=== PATIENT | female | born 1980 | race American Indian/Alaskan Native ===

== ENCOUNTER 2017-09-16 19:26 | Emergency (ER) | payer SELFPAY ==
[2017-09-16 19:35] VITALS: BP 134/90
[2017-09-16] MEDS ORDERED: FLEXERIL ONE (20:41)
[2017-09-16] MEDS ORDERED: ULTRAM ONE (20:41)
[2017-09-16] MEDS ORDERED: BOOSTRIX IM ONE (21:24)
[2017-09-16] MEDS ORDERED: KEFLEX PO ONE (21:24)
[2017-09-16] MEDS ORDERED: NORCO 5/325 PO ONE (21:24)
[2017-09-16] MEDS ORDERED: PERCOCET 5/325 PO ONE (21:25)
[2017-09-16] MEDS ORDERED: ZOFRAN ODT PO ONE (21:25)
--- NOTE | 2017-09-16 22:12 | Emergency Department Report ---
- General Chief Complaint: Wound/Laceration Stated Complaint: LSCERATION TO RIGHT HAND Time Seen by Provider: 09/16/17 21:23 Source: patient, EMS Mode of arrival: Ambulatory Limitations: No Limitations - History of Present Illness Initial Comments: 37-year-old female past medical history none presents with complaint of deep laceration to distal right index fingertip. Happened while cooking dinner per pt. no other injuries, unknown tdap status. Fingertip wrapped with gauze on initial inspection -: This evening Extremity Location: Right: Hand (distal right index fingertip) Place: home Patient Tetanus UTD: No Context: accidental Associated Symptoms: pain - Related Data Previous Rx's Medication Instructions Recorded Last Taken Type Cephalexin [Keflex] 500 mg PO BID #20 capsule 09/16/17 Unknown Rx Ibuprofen [Motrin] 600 mg PO Q8H PRN #30 tablet 09/16/17 Unknown Rx RX: Acetaminophen/Codeine [Tylenol 1 tab PO Q6H PRN #12 tab 09/16/17 Unknown Rx /Codeine # 3 tab] Allergies Allergy/AdvReac Type Severity Reaction Status Date / Time iodine Allergy Hives Verified 09/16/17 19:30 shellfish derived Allergy Hives Verified 09/16/17 19:30 ED Review of Systems ROS: Stated complaint: LSCERATION TO RIGHT HAND Other details as noted in HPI Constitutional: denies: chills, fever Eyes: denies: eye pain, eye discharge, vision change ENT: denies: ear pain, throat pain Respiratory: denies: cough, shortness of breath, wheezing Cardiovascular: denies: chest pain, palpitations Endocrine: no symptoms reported Gastrointestinal: denies: abdominal pain, nausea, diarrhea Genitourinary: denies: urgency, dysuria, discharge Musculoskeletal: denies: back pain, joint swelling, arthralgia Skin: denies: rash, lesions Neurological: denies: headache, weakness, paresthesias Psychiatric: denies: anxiety, depression Hematological/Lymphatic: denies: easy bleeding, easy bruising ED Past Medical Hx - Past Medical History Previous Medical History?: No - Social History Smoking Status: Current Some Day Smoker - Medications Home Medications: Home Medications Medication Instructions Recorded Confirmed Last Taken Type Cephalexin [Keflex] 500 mg PO BID #20 capsule 09/16/17 Unknown Rx Ibuprofen [Motrin] 600 mg PO Q8H PRN #30 tablet 09/16/17 Unknown Rx RX: Acetaminophen/Codeine [Tylenol 1 tab PO Q6H PRN #12 tab 09/16/17 Unknown Rx /Codeine # 3 tab] ED Physical Exam - General Limitations: No Limitations General appearance: alert, in no apparent distress - Head Head exam: Present: atraumatic, normocephalic - Eye Eye exam: Present: normal appearance, PERRL, EOMI - ENT ENT exam: Present: mucous membranes moist - Neck Neck exam: Present: normal inspection - Respiratory Respiratory exam: Present: normal lung sounds bilaterally. Absent: respiratory distress - Cardiovascular Cardiovascular Exam: Present: regular rate, normal rhythm. Absent: systolic murmur, diastolic murmur, rubs, gallop - GI/Abdominal GI/Abdominal exam: Present: soft, normal bowel sounds - Extremities Exam Extremities exam: Present: normal inspection - Expanded Upper Extremity Exam Right Shoulder Exam: Present: normal inspection, full ROM Upper Arm exam: Present: normal inspection, full ROM Elbow exam: Present: normal inspection, full ROM Forearm Wrist exam: Present: normal inspection, full ROM Hand Wrist exam: Present: normal inspection, full ROM Hand L/R Front: 1 - Positive: laceration (semicircumferential laceration here around tuft of fingertip going around nailbed.) Neuro motor exam: Present: wrist extension intact, thumb opposition intact, thumb IP flexion intact, thumb adduction intact, fingers 2-5 abduction intact Neurosensory exam: Present: radial nerve intact, ulnar nerve intact, median nerve intact Vascular: Present: normal capillary refill - Back Exam Back exam: Present: normal inspection - Neurological Exam Neurological exam: Present: alert, oriented X3 - Psychiatric Psychiatric exam: Present: normal affect, normal mood - Skin Skin exam: Present: warm, dry, intact, normal color. Absent: rash ED Course Vital Signs 09/16/17 19:32 Temperature 98.8 F Pulse Rate 84 Respiratory 20 Rate Blood Pressure 134/90 O2 Sat by Pulse 99 Oximetry - Laceration /Wound Repair Right Distal Finger Wound Location: upper extremity (distal right index finger) Wound's Depth, Shape: superficial, linear, irregular Irrigated w/ Saline (ccs): 1,000 Anesthesia: 1% Lidocaine Volume Anesthetic (ccs): 5 Wound Debrided: minimal Suture Size/Type: 5:0, 4:0, nylon Number of Sutures: 8 Layer Closure?: No Sterile Dressing Applied?: Yes (triple antibiotic ointment with gauze then fingertip splint) ED Medical Decision Making - Medical Decision Making A/P: Fingertip laceration and fracture 1-wound approximated, good distal capillary refill and distal sensation, range of motion fingers intact 2-discussed with before discharge 3-I emphasized the importance of orthopedic hand specialist follow-up to the patient. I provided her with multiple referrals and advised to follow-up with orthopedics to mitigate any infection and/or permanent disability and/or loss of fingertip. Patient stated she understood the importance of doing so. Patient's partner at bedside for this conversation. 4- short course analgesics, Keflex 10 day course. 48 hour recheck in the ED. Critical care attestation.: If time is entered above; I have spent that time in minutes in the direct care of this critically ill patient, excluding procedure time. ED Disposition Clinical Impression: Finger laceration Qualifiers: Encounter type: initial encounter Finger: index finger Damage to nail status: without damage Foreign body presence: without foreign body Laterality: right Qualified Code(s): S61.210A - Laceration without foreign body of right index finger without damage to nail, initial encounter Finger fracture, right Qualifiers: Encounter type: initial encounter Finger: index finger Fracture type: open Phalanx: distal Fracture alignment: displaced Qualified Code(s): S62.630B - Displaced fracture of distal phalanx of right index finger, initial encounter for open fracture Disposition: DC-01 TO HOME OR SELFCARE Is pt being admited?: No Does the pt Need Aspirin: No Condition: Stable Instructions: Finger Fracture (ED), Finger Amputation (ED), Finger Laceration ( ED) Additional Instructions: [email or web address] 48-72 hours wound check in ED if you cannot f/u with orthopedics in this timeframe Prescriptions: RX: Acetaminophen/Codeine [Tylenol /Codeine # 3 tab] 1 tab PO Q6H PRN #12 tab PRN Reason: Pain Cephalexin [Keflex] 500 mg PO BID #20 capsule Ibuprofen [Motrin] 600 mg PO Q8H PRN #30 tablet PRN Reason: Pain Referrals: PRIMARY CAREMD [Primary Care Provider] - 3-5 Days [facility] [Outside] - 3-5 Days [facility] [Provider Group] - 3-5 Days EMELIA GARCIAS MD [Staff Physician] - 3-5 Days Forms: Accompanied Note, Work/School Release Form(ED) Time of Disposition: 23:51
--- NOTE | 2017-09-16 23:08 | XRay Report ---
FINAL REPORT PROCEDURE: XR FINGER(S) 2+V RT TECHNIQUE: Three views of the right 2nd finger are obtained HISTORY: right fingertip laceration index finger COMPARISON: No prior studies are available for comparison. FINDINGS: There is a laceration through the distal aspect of the 2nd finger. This has a moderately displaced and moderately angulated fracture through the midshaft of the distal phalanx. No dislocation is seen. IMPRESSION: Moderately displaced and angulated fracture of the midshaft of the distal phalanx of the right 2nd finger is seen.
[2017-09-17] MEDS ORDERED: ANCEF IM ONE
[2017-09-17] MEDS ORDERED: TRIPLE ANTIBIOTIC TP ONE ×2 (00:03→00:04)
== END 2017-09-17 00:25 | disposition home or self-care (01) ==
LOC: ED 19:26
DX: S62.630B Displaced fracture of distal phalanx of right index finger, initial encounter for open fracture (principal); F17.200 Nicotine dependence, unspecified, uncomplicated; Z91.013 Allergy to seafood; X58.XXXA Exposure to other specified factors, initial encounter; Y93.G3 Activity, cooking and baking; Y99.8 Other external cause status; Y92.098 Other place in other non-institutional residence as the place of occurrence of the external cause
CPT/HCPCS: 29130; 73140; 90471; 90715; 96372; 99284; J0690; A6250; Q0162

== ENCOUNTER 2017-10-01 05:07 | Emergency (ER) | payer SELFPAY ==
[2017-10-01 05:45] VITALS: BP 114/74
--- NOTE | 2017-10-01 06:48 | Emergency Department Report ---
Suture/Staple Removal - [facility] Chief Complaint: Laceration/Recheck/Suture Stated Complaint: SUTURE REMOVED Time Seen by Provider: 10/01/17 06:42 When Sutures or Anam Placed: 11-14 Days Ago Wound Location: right index finger ED Review of Systems ROS: Stated complaint: SUTURE REMOVED Other details as noted in HPI Constitutional: no symptoms reported, see HPI. denies: chills, diaphoresis, fever, malaise, weakness Respiratory: no symptoms reported, see HPI. denies: cough, orthopnea, shortness of breath, SOB with exertion, SOB at rest, stridor, wheezing Cardiovascular: as per HPI. denies: chest pain, palpitations, dyspnea on exertion, orthopnea, edema, syncope, paroxysmal nocturnal dyspnea Skin: as per HPI, other (sutures to right index laceration). denies: rash, lesions, change in color, change in hair/nails, pruritus Neurological: as per HPI. denies: headache, weakness, numbness, paresthesias, confusion, abnormal gait, vertigo Psychiatric: as per HPI. denies: anxiety, depression, auditory hallucinations, visual hallucinations, homicidal thoughts, suicidal thoughts ED Past Medical Hx - Past Medical History Previous Medical History?: No Hx Psychiatric Treatment: Yes (2005- IP in [facility]) - Surgical History Past Surgical History?: No - Social History Smoking Status: Current Every Day Smoker Substance Use Type: None - Medications Home Medications: Home Medications Medication Instructions Recorded Confirmed Last Taken Type Amoxicillin/K Clav Tab [Augmentin 1 tab PO Q12HR #20 tab 04/29/17 Unknown Rx 875 mg] Carbamide Peroxide 6.5% [Ear Wax 5 drops OT BID #1 bottle 04/29/17 Unknown Rx Drops] Ibuprofen [Motrin 800 MG tab] 800 mg PO Q8HR PRN #30 tablet 04/29/17 Unknown Rx Acetaminophen/Codeine [Tylenol 1 tab PO Q6H PRN #12 tab 09/16/17 Unknown Rx /Codeine # 3 tab] Cephalexin [Keflex] 500 mg PO BID #20 capsule 09/16/17 Unknown Rx Ibuprofen [Motrin] 600 mg PO Q8H PRN #30 tablet 09/16/17 Unknown Rx Suture Removal Exam - Exam General: Vital signs noted. No distress. Alert and acting appropriately. Wound: Yes Tenderness, No Pathologic Erythema, No Drainage, No Pus, No Wound Dehiscence Other Systems: All other systems reviewed and are unremarkable. ED Course Vital Signs 10/01/17 05:40 Temperature 98 F Pulse Rate 70 Respiratory 16 Rate Blood Pressure 114/74 O2 Sat by Pulse 100 Oximetry - Reevaluation(s) Reevaluation #1: 10/01/17 06:45 8 sutures removed from right distal 1st phalanx, skin approximated with no edema or odor. Critical care attestation.: If time is entered above; I have spent that time in minutes in the direct care of this critically ill patient, excluding procedure time. ED Disposition Clinical Impression: Visit for suture removal Finger laceration Qualifiers: Encounter type: sequela Finger: index finger Damage to nail status: without damage Foreign body presence: without foreign body Laterality: right Qualified Code(s): S61.210S - Laceration without foreign body of right index finger without damage to nail, sequela Disposition: DC-01 TO HOME OR SELFCARE Is pt being admited?: No Does the pt Need Aspirin: No Condition: Stable Instructions: Suture Removal (ED) Referrals: PRIMARY CAREMD [Primary Care Provider] - 3-5 Days [facility] [Outside] - 3-5 Days [facility] [Outside] - 3-5 Days Forms: Work/School Release Form(ED) Time of Disposition: 06:52 Print Language: PAKIST[place]
== END 2017-10-01 06:52 | disposition home or self-care (01) ==
LOC: ED 05:07
DX: S61.210D Laceration without foreign body of right index finger without damage to nail, subsequent encounter (principal); F17.200 Nicotine dependence, unspecified, uncomplicated; Z91.013 Allergy to seafood